=== PATIENT | female | born 1975 | race African-American/Black ===

== ENCOUNTER 2019-06-10 17:11 | Emergency (ER) | payer BC ==
[~2019-06-10] VITALS: Ht 160 cm; Wt 104.3 kg
[2019-06-10 17:18] VITALS: BP 112/82
--- NOTE | 2019-06-10 17:25 | NUR ---
ED Nurse Note: Patient walked in from home c/o right knee injury. patient reports she tripped and fell yesterday around 1000.
--- NOTE | 2019-06-10 17:42 | Emergency Room Report ---
History of Present Illness General Chief Complaint: Lower Extremity Injury Source: Patient (Kentrell Estevez MD) Present Illness HPI HPI: This is a 43-year-old female with a history of diabetes presenting for evaluation of right knee pain. She was walking yesterday while at work tripping over a wooden pallet falling forward onto her right knee. She noted immediate pain and swelling around the right patella and some difficulty ambulating though this has been improving over the past 24 hours. She has been applying ice and using NSAIDs. There was no head injury, loss of consciousness , injury to the neck, back, torso or other extremities. She did not sustain any lacerations or abrasions. States the pain is mostly over the anterior patella and that the joint itself feels stable. She is ambulating with a slight limp but states it is manageable. She is requesting evaluation as this was a work-related injury. PMH: Diabetes PSH: None Allergies: None Social Hx: Denies alcohol, tobacco or drug use (Kentrell Estevez MD) Allergies: Coded Allergies: No Known Allergies (Unverified , 06/10/19) Patient History Last Menstrual Period: 05/2019 Now: No (Kentrell Estevez MD) Nursing Documentation-PMH Past Medical History: No History, Except For Hx Diabetes: Yes (Kentrell Estevez MD) Review of Systems All Other Systems: negative except mentioned in HPI (Kentrell Estevez MD) Physical Exam Vital Signs Date Time Temp Pulse Resp B/P (MAP) Pulse Ox O2 Delivery O2 Flow Rate FiO2 06/10/19 17:18 98.2 77 20 112/82 (92) 97 Room Air General: Awake and alert, no acute distress HEENT: NC/AT. EOMI. Resp: Normal work of breathing Abdomen: Abdomen is soft, nondistended. Nontender Skin: Intact. No abrasions, laceration or rash over the exposed skin MSK: Normal tone and bulk. Moving all extremities. No obvious deformity. Mild tenderness palpation over the anterior patella with some circumferential edema. No overlying skin breakdown or injury. Full range of motion on flexion, extension of the knees bilaterally. Patellas in the anatomic position. Gait is stable. Pelvis is stable, hips have full range of motion, ankles have full range of motion. Neuro: Awake and alert. Mentating appropriately. Sensation is intact over the dermatomes of lower extremity's bilaterally. Back/Spine: No midline tenderness in the cervical, thoracic or lumbosacral spine. (Kentrell Estevez MD) Medical Decision Making ER Course 43-year-old female presents after a fall onto her right knee yesterday concern for patellar pain and persistent limp though she states it is improving. She is concerned for a fracture and we will order an x-ray to evaluate. She does not require pain medication at this time. Ultimately, I believe she will be stable for discharge with continued NSAIDs, ice and will provide an Steve wrap as well. (Kentrell Estevez MD) Other X-Ray Diagnostic Results Other X-Ray Diagnostic Results : X-Ray ordered: knee # of Views/Limited Vs Complete: 3 View Indication: Pain EP Interpretation: Yes Interpretation: no dislocation, no soft tissue swelling, no fractures Impression: No acute disease Electronically Signed by: Electronically signed by Dr. Kentrell Estevez (Kentrell Estevez MD) Reevaluation Time: 18:48 Last Vital Signs Date Time Temp Pulse Resp B/P (MAP) Pulse Ox O2 Delivery O2 Flow Rate FiO2 06/10/19 17:18 98.2 77 20 112/82 (92) 97 Room Air Reevaluation Impression No obvious fracture dislocation on x-ray. The patient was given an Steve wrap and encouraged to continue using NSAIDs and ice. She will follow-up with primary care clinic. We discussed reasons to return to the emergency department she was able to safely ambulate out of the ED. Please note that this report is being documented using [employer] technology. This can lead to erroneous entry secondary to incorrect interpretation by the dictating instrument. (Kentrell Estevez MD) Disposition: HOME, SELF-CARE Condition: Stable Patient Instructions: Contusion, Knee Pain, [id number] Kentrell Estevez MD Jun 10, 2019 17:42 Perico Sánchez Jun 10, 2019 18:16
--- NOTE | 2019-06-10 18:28 | NUR ---
ED Nurse Note: Pt cleared by KRISTY SCHRADER to go home. DC instructions/prescription was given and explained to pt and verbalized understanding of teachings. All medical deviecs such as ID band removed. Pt is AAO x4, ambulatory. Addendum: 06/10/19 at 1829 by AARRIOLA YOLA wrap applied by Jhonny PORRAS
--- NOTE | 2019-06-11 14:06 | Diagnostic Imaging Report ---
Indication: Trauma, pain Technique: 3 views of the knee Comparison: None Findings: There is a small superior pole patellar traction osteophyte. No suprapatellar effusion. No acute fractures. No dislocations. Joint spaces are preserved Impression: Negative
== END 2019-06-10 18:20 | disposition home or self-care (01) ==
LOC: EMR 18:10
DX: M25.561 Pain in right knee (principal); E11.9 Type 2 diabetes mellitus without complications; R22.41 Localized swelling, mass and lump, right lower limb
CPT/HCPCS: 99283